=== PATIENT | male | born 1975 | race Caucasian/White ===

== ENCOUNTER → 2018-04-02 09:22 | Outpatient (CLI) | payer OTHER, MEDICAID, SELFPAY ==
--- NOTE | 2018-04-02 | DI.US.S_ITS ---
PROCEDURE: US ABDOMEN COMPLETE INDICATIONS: ABDOMINAL PAIN TECHNIQUE: Real-time scanning was performed of the abdominal and retroperitoneal organs, with image documentation. COMPARISON: None. FINDINGS: Liver: Liver is normal in size and homogeneous in echotexture. Gallbladder: Gallbladder is contracted and suboptimally visualized. Biliary ducts: Intrahepatic bile ducts are non-dilated. Extrahepatic bile duct caliber measures 4.0 mm. Normal is 6-7 mm or less in diameter, or 10 mm or less post-cholecystectomy. Pancreas: Visualized portions of the pancreas are sonographically normal. Spleen: Spleen is normal in size and homogeneous in echotexture. Kidneys: Kidneys are normal in size and echotexture. Right kidney measures 11.2 cm long; left kidney measures 11.3 cm long. No hydronephrosis or nephrolithiasis. No solid masses. Aorta: Visualized aorta is normal in caliber at less than 3 cm. Iliacs: Proximal common iliac arteries are normal in caliber at less than 2.5 cm. IVC: Intrahepatic inferior vena cava is patent. Miscellaneous: No free abdominal fluid. IMPRESSION: 1. Contracted gallbladder which is likely related to non-n.p.o. state. If indicated, limited gallbladder ultrasound could be performed after fasting. Dictated by: Jose Antonio KELSEY Interpreted: Jessica Tate MD on 04/02/2018 at 10:29 Approved by: Jessica Tate MD, PhD on 04/02/2018 at 12:09
== END ==
PROVIDERS: Family Provider Family Medicine; Visit Provider Family Medicine
DX: R10.9 Unspecified abdominal pain (principal)
CPT/HCPCS: 76700

== ENCOUNTER 2020-02-17 23:09 | Emergency (ER) | payer OTHER, MEDICAID, SELFPAY ==
[2020-02-17 23:19] VITALS: BP 130/82; PULSE 99; RESP 18; TEMP 36.6; O2SAT 100; BMI 23.4
--- NOTE | 2020-02-17 23:25 | ED.SKABFB ---
HPI - Skin/Abscess/Foreign Bdy General Chief complaint: Skin/Abscess/Foreign Body Stated complaint: puss coming out of cut on left hand Time Seen by Provider: 02/17/20 23:17 Source: patient and family Mode of arrival: Ambulatory Limitations: no limitations History of Present Illness HPI narrative: 44-year-old gentleman with a history of chronic back pain and chronic opioid use presents with red streaks running up his inner left arm for 24 hours and 12 hours of increasing redness of the dorsum of his left hand with minor amount of drainage over a small wound left hand 5th knuckle. 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 Has not been feeling sick, experience fevers, myalgias, headaches, dizziness, abdominal pain, chest pain, dyspnea, tachycardia, lower extremity edema. Related Data Previous Rx's Medication Instructions Recorded cephalexin 500 mg PO Q8H #30 cap 02/18/20 Allergies Allergy/AdvReac Type Severity Reaction Status Date / Time ibuprofen Allergy Mild Verified 02/18/20 00:14 codeine Allergy Unknown Verified 02/18/20 00:14 Review of Systems Review of Systems Narrative: Pertinent positive and negative findings as per HPI Remainder of review of systems is otherwise unremarkable for Constitutional: Fevers, chills, weakness ENT: No sore throat, neck pain, ear pain : Dysuria, hematuria, flank pain MS: Muscle weakness, numbness, joint swelling or warmth Psych: Depression, anxiety, suicidal ideation Endocrine: Fatigue, heat or cold intolerance, very dry skin Heme: Easy bruising or bleeding Patient History Social History Smoking Status: Current every day smoker Smoking Status: Current every day smoker tobacco type: cigarettes alcohol intake frequency: a few times a month Substance Use Type: marijuana Exam Narrative Exam Narrative: General: Healthy appearing, in no acute distress. Able to give a complete and coherent history. Well-nourished well-developed HEENT: Moist mucous membranes, normal sclera with reactive pupils, Neck: supple Respiratory: Lungs are clear to auscultation, no wheezing no rales no rhonchi. Full and symmetrical air movement Cardiac: Regular rate and rhythm no murmurs no bruits Abdomen: Soft nontender good bowel tones, no flank pain Skin: Warm and dry, no rashes Neurologic: Grossly neurologically intact with no obvious asymmetries or abnormalities Extremities: well perfused. Left hand has a small wound over the 5th knuckle with some minor swelling and erythema over the dorsum of the left hand with lymphangitis ECMO spread of the forearm and in her arm on the left side. He has no axillary adenopathy. Left hand has full and unrestricted range of motion without pain or tenderness to suggest synovial involvement and is completely neurovascularly intact Psych: Cooperative, appropriate insight and affect Initial Vital Signs Initial Vital Signs: Vital Signs Temperature 97.9 F 02/17/20 23:19 Pulse Rate 99 H 02/17/20 23:19 Respiratory Rate 18 02/17/20 23:19 Blood Pressure 130/82 02/17/20 23:19 Pulse Oximetry 100 02/17/20 23:19 Course Orders Ordered: ED Orders 02/17/20 23:35 Blood Culture Stat Complete Blood Count AUTO DIFF Stat Comprehensive Metabolic Panel Stat Lactate (Lactic Acid) Stat Discontinued Medications Ceftriaxone Sodium/Dextrose (Rocephin) 2 gm in 50 mls @ 100 mls/hr IV NOW ONE Stop: 02/18/20 00:28 Last Infusion: 02/18/20 00:42 Dose: 0 mls/hr Documented by: Admin: 02/18/20 00:15 Dose: 100 mls/hr Documented by: YANET Vital Signs Vital signs: Vital Signs - 8 hr 02/17/20 23:19 02/18/20 00:30 Temperature 97.9 F Pulse Rate 99 H 81 Respiratory Rate 18 17 Blood Pressure 130/82 Blood Pressure [Right Arm] 114/75 Pulse Oximetry 100 98 MDM - Skin/Abscess/Foreign Bdy Lab Data Result diagrams: 02/17/20 23:35 02/17/20 23:35 Labs: Lab Results 02/17/20 02/17/20 02/17/20 Range/Units 23:35 23:35 23:35 WBC 12.0 H (4.5-11.0) X10^3/uL RBC 4.82 (4.5-5.9) X10^6/uL Hgb 14.3 (13.5-17.5) g/dL Hct 42.2 (41-53) % MCV 87.5 (80-100) fL MCH 29.7 (26-34) PG MCHC 33.9 (30-36) % RDW 15.1 H (11.6-14.8) % Plt Count 340 (150-400) X10^3/uL Neut % (Auto) 66.0 (50-75) % Lymph % (Auto) 22.8 L (25-40) % Meigs % (Auto) 6.9 (3-14) % Eos % (Auto) 4.0 (2-4) % Baso % (Auto) 0.3 (0-2) % Neut # (Auto) 7900 H (8980-5315) /uL Lymph # (Auto) 2700 (6159-7677) /uL Meigs # (Auto) 800 (0-900) /uL Eos # (Auto) 500 H (0-450) /uL Baso # (Auto) 0 (0-100) /uL Sodium 135 L (137-145) mmol/L Potassium 3.7 (3.4-5.1) mmol/L Chloride 103 (98-107) mmol/L Carbon Dioxide 24 (22-32) mmol/L BUN 14 (9-20) mg/dL Creatinine 0.78 (0.66-1.25) mg/dL Estimated GFR > 60.0 (>60) mL/min BUN/Creatinine Ratio 17.9 (6-22) Glucose 114 H (70-100) mg/dL Lactate 0.9 (0.7-2.1) mmol/L Calcium 9.1 (8.4-10.2) mg/dL Total Bilirubin 0.7 (0.2-1.3) mg/dL AST 22 (17-59) IU/L ALT 15 (<50) IU/L Alkaline Phosphatase 92 (38-126) U/L Total Protein 7.3 (6.3-8.2) g/dL Albumin 4.3 (3.5-5.0) g/dL Globulin 3.0 (1.7-4.1) g/dL Albumin/Globulin Ratio 1.4 (1.0-2.8) MDM Narrative Medical decision making narrative: 44-year-old gentleman with cellulitis stemming from a small wound on the knuckle of his left hand. Expanding within did express add with minor irritation and cellulitis of the hand. No evidence of sepsis or overwhelming infection at this time. Wound is slightly draining no obvious abscess collection and no indication for I&D currently. He was given 2 g of IV ceftriaxone in the emergency department. With no pain, no fever, no signs of sepsis he is safe for home discharge with oral antibiotics and close follow-up. Discharge Plan Departure Patient Disposition: Home Clinical Impression: Cellulitis Qualifiers: Site of cellulitis: extremity Site of cellulitis of extremity: upper extremity Laterality: left Qualified Code(s): L03.114 - Cellulitis of left upper limb Instructions: DI for Cellulitis -- Adult Activity Restrictions/Additional Instructions: Thank you for coming in today You clearly have a skin infection with lymphangitis spread (the red streaks up your arm). Your clinical exam does not suggest an overwhelming infection and your blood work confirms this. Your given 2 g of IV ceftriaxone(antibiotic) in the emergency room to get started on treatment of this infection. I am going to prescribe 10 additional days of Keflex, 500 mg to be taken 3 times a day. It is important that you complete this entire prescription. If your hand is getting more swollen, more red or your having any trouble with moving the fingers or the wrist you do need to return to the emergency department. With any signs of dizziness overall achiness, headaches, increasing fevers or worsening red streaks up your arm, you need to return to the emergency department. If you have any questions I would encourage you to seek early follow-up to make sure that you were avoiding any complications from this infection. I hope you heal quickly. Prescriptions: New cephalexin 500 mg capsule 500 mg PO Q8H Qty: 30 RF: 0 Referrals: Luciano Perera MD [Primary Care Provider] -
[2020-02-18 00:09] LABS: Add Manual Diff / Slide Review NO; Basophils Absolute Auto 0 /uL (0-100); Basophils Percent Auto 0.3 % (0-2); Eosinophils Absolute Auto 500 /uL (0-450); Hematocrit 42.2 % (41-53); Hemoglobin 14.3 g/dL (13.5-17.5); Lymphocytes Absolute Auto 2700 /uL (1100-4500); Lymphocytes Percent Auto 22.8 % (25-40); Mean Corpuscular HGB Conc 33.9 % (30-36); Mean Corpuscular Hemoglobin 29.7 PG (26-34); Mean Corpuscular Volume 87.5 fL (80-100); Monocytes Absolute Auto 800 /uL (0-900); Monocytes Percent Auto 6.9 % (3-14); Neutrophils Absolute Auto 7900 /uL (1500-7000); Platelet Count 340 X10^3/uL (150-400); Red Blood Cell Count 4.82 X10^6/uL (4.5-5.9); Red Cell Distribution Width 15.1 % (11.6-14.8)
[2020-02-18 00:14] LABS: Alanine Aminotransferase 15 IU/L (<50); Albumin 4.3 g/dL (3.5-5.0); Albumin Globulin Ratio 1.4 (1.0-2.8); Alkaline Phosphatase 92 U/L (38-126); Aspartate Aminotransferase 22 IU/L (17-59); BUN Creatinine Ratio 17.9 (6-22); Bilirubin Total 0.7 mg/dL (0.2-1.3); Blood Urea Nitrogen 14 mg/dL (9-20); Calcium 9.1 mg/dL (8.4-10.2); Carbon Dioxide 24 mmol/L (22-32); Chloride 103 mmol/L (98-107); Estimated Glomerular Filt Rate > 60.0 mL/min (>60); Glucose 114 mg/dL (70-100); HEMOLYSIS < 15 (0-50); Lactate (Lactic Acid) 0.9 mmol/L (0.7-2.1); Potassium 3.7 mmol/L (3.4-5.1); Sodium 135 mmol/L (137-145); Total Protein 7.3 g/dL (6.3-8.2)
[2020-02-18] MEDS: CEFTRIAXONE 2 GM/50 ML FROZ.PIGGY IV (00:15)
[2020-02-18 00:30] VITALS: BP 114/75; PULSE 81; RESP 17; O2SAT 98
== END 2020-02-18 01:03 | disposition home or self-care (01) ==
PROVIDERS: Emergency Provider Emergency Medicine; Family Provider Family Medicine; PCP Family Medicine
DX: L03.114 Cellulitis of left upper limb (principal)
CPT/HCPCS: 36415; 80053; 83605; 85025; 87040; 96365; 99284; J0696

== ENCOUNTER → 2023-09-11 09:15 | Outpatient (CLI) | payer OTHER, MEDICAID, SELFPAY ==
--- NOTE | 2023-09-11 | DI.RAD.S_ITS ---
PROCEDURE: XR LUMBAR SPINE 2-3V INDICATIONS: BACK PAIN TECHNIQUE: 3 views of the lumbar spine were acquired. COMPARISON: [facility], , L-SPINE 2-3 VIEWS, 10/01/2010, 18:36. FINDINGS: Bones: 5 [id number] vertebrae are present. There is normal bony alignment. No vertebral body compression fractures. No suspicious bony lesions. There are multilevel spondylitic changes most pronounced in the lower lumbar spine which have progressed compared to the prior study. Findings are most severe at L4-5 and L5-S1. Associated mid and lower lumbar facet arthropathy. Soft tissues: Overlying bowel gas pattern is normal. No suspicious soft tissue calcifications. IMPRESSION: Lumbar spine without acute fracture or malalignment. Multilevel lumbar spondylosis most severe at L4-5 and L5-S1. Overall, spondylitic changes have progressed compared to 2010 radiographs. Dictated by: Leo Barfield M.D. on 09/11/2023 at 10:39 Approved by: Leo Barfield M.D. on 09/11/2023 at 10:41
== END ==
PROVIDERS: Family Provider Family Medicine; PCP Family Medicine; Referring Provider Family Medicine; Visit Provider Family Medicine
DX: M47.816 Spondylosis without myelopathy or radiculopathy, lumbar region (principal); M47.817 Spondylosis without myelopathy or radiculopathy, lumbosacral region; M54.50 Low back pain, unspecified
CPT/HCPCS: 72100

== ENCOUNTER → 2023-10-26 09:28 | Outpatient (CLI) | payer OTHER, MEDICAID, SELFPAY ==
--- NOTE | 2023-10-26 | DI.CT.S_ITS ---
PROCEDURE: CT SINUS SCREEN WO CON INDICATIONS: deviated nasal septum TECHNIQUE: Noncontrast 3.0 mm axial images acquired from the frontal sinuses to the mid-sella, with coronal and sagittal reformats. For radiation dose reduction, the following was used: automated exposure control, adjustment of mA and/or kV according to patient size. COMPARISON: [facility], CT, SINUS SCREEN WO CONTRAST, 04/11/2017, 10:06. FINDINGS: Image quality: Excellent. Maxillary Sinuses: No bony remodeling or destruction. Bilateral mucosal thickening with frothy secretions and air fluid levels. Ethmoid Air Cells: No bony remodeling or destruction. Complete opacification of the bilateral ethmoid sinuses. Sphenoid Sinuses: No bony remodeling or destruction. Bilateral frothy secretions with mucosal thickening, left greater than right.. Frontal Sinuses: No bony remodeling or destruction. Near complete opacification of the bilateral frontal sinuses. Ostiomeatal Complexes: Bilateral ostiomeatal complexes are occluded. Anterior and posterior drainage pathways are narrowed bilaterally, similar to prior. No Rodney cells. Miscellaneous: Visualized intra-orbital contents are normal. No kimberly bullosa or paradoxical turbinate curvature. Query a right inferior turbinectomy. Rightward deviation of the nasal septum with probable remote nasal bone fracture with tiny ossific fragments. Edentulous. IMPRESSION: 1. Pansinusitis with frothy secretions and active sinusitis in the bilateral maxillary sinuses. No osseous remodeling or destruction. 2. Bilateral ostiomeatal complexes are occluded with compromise drainage pathways bilaterally. 3. Nasal septal deviation to the right, as before. 4. Probable sequela of remote fracture of the tip of the nasal bone, as before. Dictated by: Parminder Tello M.D. on 10/26/2023 at 17:47 Approved by: Parminder Tello M.D. on 10/26/2023 at 17:58
== END ==
LOC: CT 09:28
PROVIDERS: Family Provider Family Medicine; PCP Family Medicine; Referring Provider Family Medicine; Visit Provider Family Medicine
DX: J32.4 Chronic pansinusitis (principal); J34.2 Deviated nasal septum
CPT/HCPCS: 70486